=== PATIENT | male | born 1960 | race Two or more races ===

== ENCOUNTER 2019-04-17 11:33 | Emergency (ER) | payer OTHER ==
[~2019-04-17] VITALS: Ht 175.3 cm; Wt 90.7 kg
[2019-04-17] MEDS ORDERED: RAPAFLO8 MG (12:02)
== END 2019-04-17 14:28 | disposition home or self-care (01) ==
LOC: ER 11:33 → CPU-OBS 12:36 → ER 12:36
DX: R07.89 Other chest pain (principal)
CPT/HCPCS: G0378; G0379; 93005